=== PATIENT | male | born 1955 | race Caucasian/White ===

== ENCOUNTER 2020-09-16 10:09 | Inpatient (IN) | payer MEDICARE ==
[~2020-09-16] VITALS: Ht 185.4 cm; Wt 113.4 kg
[~2020-09-16 10:09] MED LIST: Voltaren Gel 1 % TOP
[2020-09-16 12:15] LABS: RED BLOOD COUNT 4.26 M/UL (4.20-5.50); WHITE BLOOD COUNT 5.4 K/UL (4.5-11.0)
[2020-09-16 13:01] LABS: BUN/CREATININE RATIO 17 (0-10)
[2020-09-16] MEDS ORDERED: BACTROBAN OINT22 GM TOP (15:13)
[2020-09-16] MEDS ORDERED: CLARITHROMYCIN500 MG PO (15:14)
[2020-09-16] MEDS ORDERED: ONDANSETRON ODT8 MG PO (15:16)
[2020-09-16] MEDS ORDERED: HUMALOG MI100 UNIT/3 SC ×2 (15:19→16:44)
[2020-09-16] MEDS ORDERED: LOPRESSOR 25 MG25 MG PO (15:20)
[2020-09-16] MEDS ORDERED: ALBUTEROL2.5 MG/3 M INH (15:23)
[2020-09-16] MEDS ORDERED: MONTELUKAST SOD10 MG PO (15:25)
[2020-09-16] MEDS ORDERED: FARXIGA10 MG PO (15:25)
[2020-09-16] MEDS ORDERED: ZETIA10 MG PO (15:26)
[2020-09-16] MEDS ORDERED: CRESTOR 10 MG T10 MG PO (15:27)
[2020-09-16] MEDS ORDERED: LANTUS SOL100 UNIT/1 SC (16:51)
[2020-09-16] MEDS ORDERED: PHENYTOIN SODI100 MG PO ×2 (16:54→16:55)
[2020-09-16] MEDS ORDERED: IPRAT-ALBUT 0.5-3 ML INH (16:58)
[2020-09-16] MEDS ORDERED: ASPIRIN EC81 MG PO (17:00)
[2020-09-17 04:28] LABS: HEMOGLOBIN 12.7 gm/dl (14.0-17.5); RED BLOOD COUNT 4.09 M/UL (4.20-5.50); WHITE BLOOD COUNT 5.2 K/UL (4.5-11.0)
[2020-09-17 04:55] LABS: BUN/CREATININE RATIO 18 (0-10)
[2020-09-18 07:04] LABS: HEMOGLOBIN 12.8 gm/dl (14.0-17.5); RED BLOOD COUNT 4.33 M/UL (4.20-5.50)
[2020-09-18 07:39] LABS: BUN/CREATININE RATIO 15 (0-10)
--- NOTE | 2020-09-19 16:26 | NUR ---
PT DEVELOPED A NOSE BLEED , TOOK O2 OFF FOR NOW , NOTIFIED , INSTRUCTED PT TO APPLY PRESSURE , HES A BIT DRAMATIC STATED HE WAS GOING TO BLEED TO , I ASSURED HIM THAT WOULD NOT HAPPEN , THAT IF IT DOESNT STOP WITH PRESSURE , THEY MAY HAVE TO PUT A RHINO ROCKET INTO HIS KNOWS , SORT OF LIKE A TAMPON, ITS NOT A PLEASENT PROCEDURE, I INFORMED HIM.
[2020-09-20] MEDS ORDERED: VITAMIN D325 MCG PO (11:28)
[2020-09-20] MEDS ORDERED: CEFUROXIME500 MG PO (11:28)
[2020-09-20] MEDS ORDERED: DECADRON6 MG PO (11:28)
[2020-09-20] MEDS ORDERED: VITAMIN C 500500 MG PO (11:28)
--- NOTE | 2020-09-20 12:49 | NUR ---
PATIENT UPSET AT [facility] WHEN I BROUGHT IN TRAY, THOUGHT HE'D IMMEDIATELY GO HOME AFTER D/C ORDER. HE WAS REFUSING EVERYTHING, BUT I REASSURED HIM THAT THE DOCTOR WANTED HIM TO HAVE HIS IV MEDICATIONS PRIOR TO LEAVING AND HE HAD TO WAIT ON HIS OXYGEN ANWAY. HE AGREED TO GET THE MEDICATIONS.
--- NOTE | 2020-09-20 12:56 | NUR ---
REMDESIVIR GIVEN EARLY AND PRIOR TO PATIENT D/C REQUESTED BY
== END 2020-09-20 16:00 | disposition home or self-care (01) | DRG 177 ==
LOC: ER1 10:09 → CDU 13:33 → MED SURG 4 13:33
PROVIDERS: Emergency Medicine; ADMIT Internal Medicine
PROC: XW033E5 Introduction of Remdesivir Anti-infective into Peripheral Vein, Percutaneous Approach, New Technology Group 5 (ICD-10-PCS; principal; 2020-09-16)
PROC: 8E0ZXY6 Isolation (ICD-10-PCS; 2020-09-16)
DX: U07.1 COVID-19 (principal); J12.82 Pneumonia due to coronavirus disease 2019; J96.01 Acute respiratory failure with hypoxia; B37.0 Candidal stomatitis; M62.82 Rhabdomyolysis; Z96.659 Presence of unspecified artificial knee joint; E11.9 Type 2 diabetes mellitus without complications; I25.10 Atherosclerotic heart disease of native coronary artery without angina pectoris; R74.01 Elevation of levels of liver transaminase levels; E88.09 Other disorders of plasma-protein metabolism, not elsewhere classified; Z79.4 Long term (current) use of insulin; Z82.49 Family history of ischemic heart disease and other diseases of the circulatory system; Z84.89 Family history of other specified conditions; Z90.49 Acquired absence of other specified parts of digestive tract; Z85.46 Personal history of malignant neoplasm of prostate; Z91.041 Radiographic dye allergy status; Z91.013 Allergy to seafood
CPT/HCPCS: 36415; 36600; 71045; 80048; 80053; 81001; 82550; 82553; 82803; 82962; 83605; 83690; 83874; 84484; 85025; 85610; 87040; 93005; 94640; 94664; 94760; 96374; 96375; 99285; J0692; J0696; J1100; J1650; J7030; U0002

== ENCOUNTER → 2020-10-08 | Outpatient (CLI) | payer MEDICARE ==
[~2020-10-08] MED LIST changes: +ALBUTEROL2.5 MG/3 M INH; +ASPIRIN EC81 MG PO; +BACTROBAN OINT22 GM TOP; +CEFUROXIME500 MG PO; +CLARITHROMYCIN500 MG PO; +CRESTOR 10 MG T10 MG PO; +DECADRON6 MG PO; +FARXIGA10 MG PO; +HUMALOG MI100 UNIT/3 SC; +IPRAT-ALBUT 0.5-3 ML INH; +LANTUS SOL100 UNIT/1 SC; +LOPRESSOR 25 MG25 MG PO; +MONTELUKAST SOD10 MG PO; +ONDANSETRON ODT8 MG PO; +PHENYTOIN SODI100 MG PO; +VITAMIN C 500500 MG PO; +VITAMIN D325 MCG PO; +ZETIA10 MG PO
== END ==
LOC: KOH-I 13:15
DX: R06.02 Shortness of breath (principal)
CPT/HCPCS: 71046